=== PATIENT | female | born 1990 | race Caucasian/White ===

== ENCOUNTER 2022-03-29 18:38 | Emergency (ER) | payer MEDICAID, SELFPAY ==
[2022-03-29 18:42] VITALS: BP 137/85; PULSE 96; RESP 18; O2SAT 98
--- NOTE | 2022-03-29 19:00 | ED.GENADUL_ITS ---
Discharge Plan Disposition Patient Disposition: HOME Condition: Good Discharge Details Clinical Impression: Abdominal pain Primary Care Provider: Unique Siddiqui ED Provider: John Zazueta Discharge Instructions Instructions: Abdominal Pain (ED) Additional Instructions: At this time your exam is very reassuring. I showed no signs of significant hernia. Your child's heart rate thankfully is normal. I suspect there is a strain on your abdominal musculature, or potentially a irritation in that area. Monitor the symptoms closely. If symptoms persist it would be very prudent to return for reassessment or follow-up closely with your OB doctor. If you notice any worsening of your symptoms, or any new symptoms such as vomiting, diarrhea, fever, chills, shortness of breath, chest pain, numbness, weakness, or fainting , please return immediately to the emergency department for reevaluation. Please follow up with your primary care provider as soon as possible for reassessment and reevaluation. As always, it was a pleasure participating in your medical care today. Referrals: Unique Siddiqui [Primary Care Provider] - Medical Decision Making This is a 31-year-old female who is a , 25 weeks , who presents today for abdominal achiness. Patient states that for the last 2 days she has had a small amount of achiness just to the right of her umbilicus. She has been doing some moving and lifting, but denies any trauma or significant strain that she is aware of. She states that the baby has been moving well. She denies any vaginal discharge. She denies any vomiting or diarrhea. She denies any chest pain or shortness of breath. She denies any change in movement for the baby. She denies any trauma to the abdomen. She does state that the symptoms occurred, and she did go to [facility] emergency department where they stated that they felt per patient that she might have a hernia. She then came to [facility]. Emergency department for a second opinion/reassessment. She denies any changes from her last ER visit earlier today, till now. She denies any other complaints at this time. Pain is made worse with movement and stretching. Improved with rest. No right upper quadrant or right lower quadrant pain. No left-sided pain. No other modifying factors Exam demonstrates appropriately gravid abdomen. No significant tenderness. No bulging hernia. She does demonstrate evidence of mild diastases recti. Patient points to the area that about 3 mm to the right of the umbilicus into the area of tenderness. Bedside ultrasound shows no evidence of large hernia.Bowel trapped in that area. Placenta appears unremarkable and limited ultrasound. No evidence of large vascular lakes on limited exam. Baby's movements are exce llent, baby's heart rate is 142. No pain or McBurney's point, negative Hurtado sign. No left-sided pain or tenderness. No flank or CVA tenderness. The remainder of her exam is notably reassuring. At this time I suspect that she potentially has a mild strained muscle, or potentially some irritation from her rectus diastases. No other abnormalities. movement appears normal otherwise. No indication for labs or imaging currently based on very reassuring exam. I have a long discussion with the patient regarding potential causative etiologies, as well as the clear clinical evidence at this time of no life- threatening surgical intra-abdominal etiology. Patient stable for discharge. Recommend close follow-up with obstetrics. Recommend ice or heat over the abdomen. I have extensively reviewed the treatment plan and discharge instructions with the patient. I have addressed all patient concerns at this time. The patient was made aware of what symptoms to monitor for that would w arrant a return to the emergency department. Discussed the plan with the patient, they demonstrate verbal understanding and agreement with our assessment and plan at this time. The documentation in this chart was dictated using [employer] dictation software. Please excuse any dictation errors. HPI General Date/Time Provider Initiated Documentation: 03/29/22 18:39 . HPI Narrative: This is a 31-year-old female who is a , 25 weeks , who presents today for abdominal achiness. Patient states that for the last 2 days she has had a small amount of achiness just to the right of her umbilicus. She has been doing some moving and lifting, but denies any trauma or significant strain that she is aware of. She states that the baby has been moving well. She denies any vaginal discharge. She denies any vomiting or diarrhea. She denies any chest pain or shortness of breath. She denies any change in movement for the baby. She denies any trauma to the abdomen. She does state that the symptoms occurred, and she did go to [facility] emergency department where they stated that they felt per patient that she might have a hernia. She then came to [facility]. Emergency department for a second opinion/reassessment. She denies any changes from her last ER visit earlier today, till now. She denies any other complaints at this time. Pain is made worse with movement and stretching. Improved with rest. No right upper quadrant or right lower quadrant pain. No left-sided pain. No other modifying factors Related Data Allergies Allergy/AdvReac Type Severity Reaction Status Date / Time No Known Allergies Allergy Unverified 03/29/22 18:46 General Stated Complaint: Abd Prob ANAMIKA: 3 Review of Systems All systems reviewed & are unremarkable except as noted in HPI and below PFSH All Active Problems Abdominal pain (Acute) Social History Smoking risk assessment performed?: No Exam Narrative Exam Narrative: 1.Const: Well-nourished, Well-developed, appearing stated age 2.Eyes: PERRL, no conjunctival injection, and symmetrical lids. 3.ENT: Atraumatic external nose and ears. Moist MM. Neck: Symmetric, trachea midline, No thyromegaly. 4.CVS: +S1/S2, No murmurs or gallops. Peripheral pulses 2+ and equal in all extremities. Brisk capillary refill in all extremities. 5.RESP: Unlabored respiratory effort. Clear to auscultation bilaterally. No wheezes rales or rhonchi 6.GI: Soft, Nontender/Nondistended, appropriately gravid abdomen. No significant tenderness. No bulging hernia. She does demonstrate evidence of mild diastases recti. Patient points to the area that about 3 mm to the right of the umbilicus into the area of tenderness. Bedside ultrasound shows no evidence of large hernia.Bowel trapped in that area. Placenta appears unremarkable and limited ultrasound. No evidence of large vascular lakes on limited exam. Baby's movements are excellent, baby's heart rate is 142. No pain or McBurney's point, negative Hurtado sign. No left-sided pain or tenderness. No flank or CVA tenderness. 7.MSK: Normocephalic/Atraumatic, Extremities w/o deformity or ttp No cyanosis or clubbing, Normal movement of all extremities 8.Skin: Warm, Dry. No rashes or lesions. 9.Neuro: thread dresser II-XII grossly intact. Sensation grossly intact, no focal neurologic deficits. 10.Psych: (AAO) x3. Appropriate mood and affect Course Vital Signs Vital signs: Vital Signs Pulse 96 H 03/29/22 18:42 Respiratory Rate 18 03/29/22 18:42 Blood Pressure 137/85 03/29/22 18:42 Pulse Oximetry 98 03/29/22 18:42 Pulse 96 H 03/29/22 18:42 Respiratory Rate 18 03/29/22 18:42 Respiratory Effort Non-Labored 03/29/22 18:47 Blood Pressure 137/85 03/29/22 18:42 Blood Pressure Position Sitting 03/29/22 18:42 Pulse Oximetry 98 03/29/22 18:42 Oxygen Delivery Method Room Air 03/29/22 18:42 Oxygen Flow Rate 0 03/29/22 18:42
[2022-03-29 19:10] VITALS: BP 122/80; PULSE 68; RESP 18; TEMP 36.1; O2SAT 99
== END 2022-03-29 19:11 | disposition home or self-care (01) ==
PROVIDERS: Emergency Provider Student in an Organized Health Care Education/Training Program; PCP Internal Medicine
DX: O26.892 Other specified pregnancy related conditions, second trimester (principal); R10.9 Unspecified abdominal pain; Z3A.25 25 weeks gestation of pregnancy
CPT/HCPCS: 99281; 99282